=== PATIENT | male | born 1995 | race Caucasian/White ===

== ENCOUNTER 2019-12-06 13:26 | Emergency (ER) | payer OTHER ==
[~2019-12-06] VITALS: Ht 175.3 cm; Wt 61.2 kg
[2019-12-06 14:18] LABS: ABSOLUTE BASOPHILS 0.1 thou/uL (0.0-0.2); ABSOLUTE EOSINOPHILS 0.1 thou/uL (0.0-0.7); ABSOLUTE LYMPHOCYTES 0.9 thou/uL (0.8-5.3); ABSOLUTE MONOCYTES 1.3 thou/uL (0.0-1.2); ABSOLUTE NEUTROPHILS 12.5 thou/uL (1.6-8.1); BASOPHILS 0.4 %; EOSINOPHILS 0.9 %; HEMATOCRIT 43.7 % (42.0-52.0); LYMPHOCYTES 6.3 %; MCHC 34.4 g/dL (28.0-37.0); MCV 90.3 fL (80.0-100.0); MONOCYTES 8.6 %; MPV 7.4 fl. (7.2-11.1); NUCLEATED RBCS 0 /100WBC; PLATELET COUNT* 390 thou/uL (150-400); POLYS 83.8 %; RBC 4.84 mil/uL (4.50-6.00); WBC 14.9 thou/uL (4.0-11.0)
[2019-12-06 14:33] LABS: ALBUMIN 3.2 g/dL (3.4-5.0); CALCIUM 9.6 mg/dL (8.5-10.1); CREATININE 1.1 mg/dL (0.6-1.3); POTASSIUM 4.3 mmol/L (3.5-5.1); TOTAL BILIRUBIN 0.3 mg/dL (<0.1-1.0); TOTAL PROTEIN 8.3 g/dL (6.4-8.2)
[2019-12-06 18:43] VITALS: BP 114/71
== END 2019-12-06 18:44 | disposition short-term general hospital (02) ==
LOC: M.ERS 13:26
PROVIDERS: Physician Assistant
DX: K12.2 Cellulitis and abscess of mouth (principal); J32.0 Chronic maxillary sinusitis

== ENCOUNTER 2019-12-25 02:45 | Inpatient (IN) | payer OTHER ==
[~2019-12-25] VITALS: Ht 167.6 cm; Wt 68.0 kg
[2019-12-25] VITALS (8 sets, daily range): BP systolic 122–150; BP diastolic 81–109
--- NOTE | ~2019-12-25 | CON ---
[address] [address] CONSULTATION Name: SARAH KERN Room: [address] M.R.#: [id number] Admission: 12/25/19 Attend Phys: Kiera Fletcher Discharge: Date of : 89 Report #: [id number] THIS REPORT FOR: //name// cc: DESIRAE - No family physician/PCP DESIRAE - No family physician/PCP ~ THIS REPORT FOR: //name// CC: [facility] physician/PCP Kiera Mota DICTATED BY: Candace Slaughter [facility] DATE OF SERVICE: 12/27/2019 The patient does not have a PCP. Please note at the time of this dictation, the patient was seen and physically examined by myself. REASON FOR CONSULTATION: Tylenol overdose and elevated LFTs. HISTORY OF PRESENT ILLNESS: This is a 23-year-old male who presented to the Emergency Room on 12/25/2019 after overdosing on 30 to 40 Tylenol 500 mg tablets with suicidal ideation. He was very nauseated. He had some diffuse abdominal pain on admission. He states his life events were very stressful. He broke up with his girlfriend and mother of his 5-year-old child. 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 He has not been able to sleep at night and noticing he had been having a low-grade fever. He had decreased appetite. He denied any nausea or vomiting at that time. He did have a bowel movement the day prior to admission and he did state he had diarrhea. The patient is currently a one-on-one and Psych is following via telemedicine. ALLERGIES: No known drug allergies. MEDICATIONS FROM HOME: None. PAST MEDICAL HISTORY: Negative. PAST SURGICAL HISTORY: Negative. FAMILY HISTORY: Negative. SOCIAL HISTORY: Positive for marijuana. Negative alcohol. REVIEW OF SYSTEMS: Twelve-point review of systems is essentially negative except what [place] [address] CONSULTATION Name: ERLINSARAH RAMIREZ Room: [address] [place] [facility]#: [id number] Admission: 12/25/19 Attend Phys: Kiera Fletcher Discharge: Date of : 89 Report #: [id number] PHYSICAL EXAMINATION: VITAL SIGNS: Temperature 37.2, pulse 89, respirations 16, blood pressure 113/71. HEART: Regular rate and rhythm. LUNGS: Clear. ABDOMEN: Soft, positive bowel sounds in all 4 quadrants with no masses or tenderness noted. LABORATORY DATA: Hemoglobin 14.7, white count 3.5, platelets 152. PT 13.7, INR 1.4, GFR is 137, total bilirubin 0.5, alkaline phosphatase 78, ALT 3959, AST is 2393, both of which are coming down and urine drug screen positive for marijuana and his acetaminophen level was 89. IMPRESSION: 1. Tylenol overdose. 2. Elevated LFTs. 3. Suicidal ideation. PLAN: 1. Continue his acetylcholine drip, monitor his LFTs. 2. Further recommendations to be made once Dr. Cantrell sees the patient later today. Thank you for allowing us to participate in this patient's care. Please do not hesitate to call with any questions in regard to this consult. By: [id number] Cantrell DO /nt
[2019-12-25 03:12] LABS: ABSOLUTE BASOPHILS 0.1 thou/uL (0.0-0.2); ABSOLUTE LYMPHOCYTES 1.1 thou/uL (0.8-5.3); ABSOLUTE MONOCYTES 0.4 thou/uL (0.0-1.2); ABSOLUTE NEUTROPHILS 5.1 thou/uL (1.6-8.1); BASOPHILS 1.2 %; EOSINOPHILS 0.2 %; HEMATOCRIT 45.7 % (42.0-52.0); HEMOGLOBIN 15.5 gm/dL (14.0-18.0); LYMPHOCYTES 16.4 %; MCH 30.7 pg (26.0-34.0); MCV 90.3 fL (80.0-100.0); MONOCYTES 6.4 %; MPV 7.7 fl. (7.2-11.1); NUCLEATED RBCS 0 /100WBC; PLATELET COUNT* 310 thou/uL (150-400); POLYS 75.8 %; RBC 5.06 mil/uL (4.50-6.00); RDW-CV 13.4 % (10.5-14.5); WBC 6.8 thou/uL (4.0-11.0)
[2019-12-25 03:19] LABS: URINE BILIRUBIN NEGATIVE (Negative); URINE BLOOD NEGATIVE (Negative); URINE CLARITY CLEAR; URINE COLOR YELLOW; URINE GLUCOSE-RANDOM NEGATIVE (Negative); URINE KETONES NEGATIVE (Negative); URINE LEUKOCYTES-REFLEX NEGATIVE (Negative); URINE NITRITE-REFLEX NEGATIVE (Negative); URINE PROTEIN NEGATIVE (Negative); URINE SPECIFIC GRAVITY >= 1.030 (1.005-1.030); URINE UROBILINOGEN 0.2 E.U./dl (0.2-1.0)
[2019-12-25 03:24] LABS: CALCIUM 8.6 mg/dL (8.5-10.1); CREATININE 1.1 mg/dL (0.6-1.3); POTASSIUM 3.2 mmol/L (3.5-5.1)
[2019-12-25 03:25] LABS: AMP/METHAMP Negative (Negative); BARBITURATES Negative (Negative); BENZODIAZEPINES Negative (Negative); COCAINE Negative (Negative); METHADONE Negative (Negative); OPIATES Negative (Negative); PCP Negative (Negative); THC POSITIVE (Negative)
[2019-12-25 03:28] LABS: APTT 31.7 Seconds (25.0-31.3); INR 1.1; PROTIME 11.7 Seconds (9.20-11.50)
[2019-12-25 03:36] LABS: TOTAL BILIRUBIN 0.4 mg/dL (<0.1-1.0); TOTAL PROTEIN 7.6 g/dL (6.4-8.2)
[2019-12-25 03:37] LABS: ACETAMINOPHEN 89 ug/mL (10-30); SALICYLATE 4.8 mg/dL (2.8-20.0)
[2019-12-25 03:41] LABS: ALCOHOL < 10 mg/dL (<10)
--- NOTE | 2019-12-25 07:32 | NUR ---
PT'S MOTHER ARRIVED TO ED AND IS SITTING AT BEDSIDE. PT'S MOTHER ALSO SIGNED TRANSFER FORM AT THIS TIME.
[2019-12-25 10:44] LABS: CALCIUM 8.3 mg/dL (8.5-10.1); CREATININE 0.7 mg/dL (0.6-1.3)
[2019-12-25 10:47] LABS: POTASSIUM 2.9 mmol/L (3.5-5.1)
[2019-12-25 10:49] LABS: ALBUMIN 3.3 g/dL (3.4-5.0); TOTAL BILIRUBIN 0.6 mg/dL (<0.1-1.0); TOTAL PROTEIN 6.8 g/dL (6.4-8.2)
--- NOTE | 2019-12-25 14:43 | NUR ---
THIS AGENCY SALES REPRESENTATIVE ASSUMED CARE OF PT AT 0805 PT WAS DOWNGRADED TO ROOM 314 ALL BELONGINGS PACKED AND SENT WITH PATIENTS TRANSPORTED VIA WHEELCHAIR BY [facility] CONSULT COMPLETE TWO AFFIDAVIT COMPLETE AND IN CHART LOOKING FOR PLACEMENT IN INPATIENT PSYCH FACILITY
--- NOTE | 2019-12-25 18:51 | NUR ---
RECEIVED REPORT AND ASSUMED CARE OF PT @ 9676.PT IS A/O X4,VSS,SI PRECAUTIONS IN PLACE.SITTER IN PLACE.NO C/O PAIN.IVF INFUSING PER ORDERS.HOURLY ROUNDING COMPLETED FOR PT SAFETY.CALL LIGHT WITHIN REACH.WILL CONTINUE TO MONITOR FOR DURATION OF SHIFT.
[2019-12-25 21:25] LABS: INR 1.4; PROTIME 14.3 Seconds (9.20-11.50)
[2019-12-25 21:34] LABS: DIRECT BILIRUBIN 0.1 mg/dL (<0.1-0.3); TOTAL BILIRUBIN 0.4 mg/dL (<0.1-1.0); TOTAL PROTEIN 6.2 g/dL (6.4-8.2)
--- NOTE | 2019-12-26 00:26 | NUR ---
Kely (from [place] poison control) called to check in on pt. Sheasked if pt was still recieving acetylcystein. Pt was currently recieving acetylcystein at the time. No pain or N/v noted. Kely to call back when LFT labs are drawn to see if pt needs to continue on med. call center agent back. Kely notifed of LFT's. She wants pt to continue on maintainance dose 0f 100mg/kg for 16hrs. Dr singh notifed for orders. orders faxed to pharmacy. preparation supervisor currently working on getting medication. Will continue to monitor.
--- NOTE | 2019-12-26 04:18 | NUR ---
Recieved a call from Lili ([place] poison control) @6193 checking in on pt. Lili informed that pt is doing ok. Pt denies any complaints at this time. Acetylcystein currently infusing. Labs to be drawn prior to end of infusion.
--- NOTE | 2019-12-26 04:25 | NUR ---
pt's mom Amarilis called @ 1478 to check in on pt. Pt's mom asked how pt is doing, as well as how labs are trendings. Pt's mom informed that pt is doing ok. Pt denies any complaints at this time. Acetylcystein infusing.
--- NOTE | 2019-12-26 05:14 | NUR ---
PT ALERT AND ORIENTED. VERY PLEASANT. VSS ON RA. 1:1 0BSERVATION. AST AND ALT TRENDING UP. PER POISON CONTROL, CONTINUE ACEYTLCYSTEIN. FLUIDS CURRENTLY INFUSING ORDERED. POISION CONTROL CALLED THROUGH SHIFT TO CHECK IN ON PT. CALLS DOCUMENTED NOTES. JON WHITE CALLED TO CHECK IN ON PT THIS AM. CALL LIGHT WITHIN REACH. HOURLY ROUNDINGS MADE. WILL CONTINUE TO MONITOR.
[2019-12-26 05:17] LABS: ALBUMIN 3.2 g/dL (3.4-5.0); POTASSIUM 4.1 mmol/L (3.5-5.1); TOTAL BILIRUBIN 0.4 mg/dL (<0.1-1.0); TOTAL PROTEIN 6.4 g/dL (6.4-8.2)
[2019-12-26 07:57] VITALS: BP 102/57
[2019-12-26 18:05] LABS: INR 1.4; PROTIME 14.3 Seconds (9.20-11.50)
[2019-12-26 18:17] LABS: DIRECT BILIRUBIN 0.2 mg/dL (<0.1-0.3); TOTAL BILIRUBIN 0.5 mg/dL (<0.1-1.0); TOTAL PROTEIN 6.6 g/dL (6.4-8.2)
[2019-12-26 19:26] LABS: ABSOLUTE EOSINOPHILS 0.2 thou/uL (0.0-0.7); ABSOLUTE MONOCYTES 0.3 thou/uL (0.0-1.2); BASOPHILS 1.3 %; EOSINOPHILS 4.3 %; HEMATOCRIT 42.8 % (42.0-52.0); HEMOGLOBIN 14.7 gm/dL (14.0-18.0); LYMPHOCYTES 29.8 %; MCH 30.6 pg (26.0-34.0); MCHC 34.3 g/dL (28.0-37.0); MCV 89.2 fL (80.0-100.0); MONOCYTES 7.4 %; MPV 7.8 fl. (7.2-11.1); NUCLEATED RBCS 0 /100WBC; POLYS 57.2 %; RDW-CV 13.2 % (10.5-14.5); WBC 3.5 thou/uL (4.0-11.0)
[2019-12-26 19:28] LABS: PLATELET COUNT* 152 thou/uL (150-400)
[2019-12-26 19:30] VITALS: BP 113/71
[2019-12-26 19:38] LABS: INR 1.4; PROTIME 14.2 Seconds (9.20-11.50)
--- NOTE | 2019-12-26 20:03 | NUR ---
PATIENT AWAKE IN BED. PATIENT AMBULATED IN ROOM THROUGHOUT SHIFT. ALL SAFETY MEASURES MAINTAINED. SPOKE WITH MARILEE FROM POISON CONTROL AT 1804. AST AND ALT LEVELS HAD NOT COME BACK YET. MARILEE REPORTS SHE WILL CALL BACK IN A FEW HOURS. PATIENT'S MOTHER CHRISTOPHER CALLED TO INQUIRE ABOUT AST AND ALT LEVELS AT 1950 . PATIENT'S MOTHER DENIES FURTHER NEEDS OR QUESTIONS AT THIS TIME. PATIENT DENIES FURTHER NEEDS AT THIS TIME.
[2019-12-27 04:31] LABS: INR 1.4; PROTIME 13.7 Seconds (9.20-11.50)
[2019-12-27 04:44] LABS: ALBUMIN 2.9 g/dL (3.4-5.0); CREATININE 0.7 mg/dL (0.6-1.3); TOTAL BILIRUBIN 0.5 mg/dL (<0.1-1.0); TOTAL PROTEIN 6.1 g/dL (6.4-8.2)
[2019-12-27 05:10] LABS: POTASSIUM 3.9 mmol/L (3.5-5.1)
[2019-12-27 06:51] LABS: TOTAL BILIRUBIN 0.5 mg/dL (<0.1-1.0)
[2019-12-27 06:52] LABS: ALBUMIN 2.9 g/dL (3.4-5.0); TOTAL PROTEIN 6.1 g/dL (6.4-8.2)
[2019-12-27 06:54] LABS: DIRECT BILIRUBIN 0.2 mg/dL (<0.1-0.3)
--- NOTE | 2019-12-27 07:29 | NUR ---
PT ALERT AND ORIENTED. VSS ON RA. VERY PLEASANT. UP AD FRANCIS. 1:1 OBSERVATION. MARILEE FROM POISON CONTROL CALLED REGARDING UPDATES ON PT. UPDATES AND LAST LABS GIVEN. WILL CONTINUE TO MONITOR. SEE LABS THIS AM FOR LFT. CALL LIGHT WITHIN REACH. WILL CONTINUE TO MONITOR.
[2019-12-27 08:00] VITALS: BP 102/60
--- NOTE | 2019-12-27 11:30 | NUR ---
MET WITH PT TO DISCUSS HOME SITUATION/DC PLANNING. PT LIVES WITH HIS MOM RECENTLY. HE USED TO HAVE HIS OWN PLACE BUT LOST IT AFTER LOSING HIS JOB 2-3WKS AGO. ALSO STATED HE HAD A RELATIONSHIP WITH [employer] THAT ENDED AROUND THAT TIME AND THAT LOSING HIS JOB WAS PART OF THAT ALSO. PT STATED HE HAS BEEN DEPRESSED, HAS HAD FAMILY TO DISCUSS IT WITH BUT NOT SOUGHT ANY OUTSIDE HELP. HE ADMITTED TO THIS TYLENOL OD BEING A SUICIDE ATTEMPT AND THAT HE'S STILL DEPRESSED. TELEPSYCH DONE AND PT STATES INPT [place] WAS RECOMMENDED. AWAIT PSYCH REPORT AND MEDICAL STABILITY AND WILL FOLLOW
[2019-12-27 16:00] VITALS: BP 112/65
[2019-12-27 16:31] LABS: INR 1.2; PROTIME 12.5 Seconds (9.20-11.50)
[2019-12-27 16:40] LABS: ALBUMIN 3.2 g/dL (3.4-5.0); DIRECT BILIRUBIN 0.2 mg/dL (<0.1-0.3); TOTAL BILIRUBIN 0.4 mg/dL (<0.1-1.0); TOTAL PROTEIN 6.6 g/dL (6.4-8.2)
--- NOTE | 2019-12-27 17:00 | NUR ---
PT A&OX4 VSS. PT REMAINS ON 1:1 OBSERVATION FOR SAFETY. ACETYLCISTEINE RUNNING DIRECTED. IV TO RAC PATENT. NO REDNESS/SWELLING NOTED AT SITE. DRESSING C/D/I. PT ASSISTED TO SHOWER THIS AFTERNOON W/O DIFFICULTY. PT HAS NO C/O N/V OR PAIN. PT DECLINED NICOTINE PATCH. PT HAD VISITORS THIS AFTERNOON, NO ISSUES OR COMPLAINTS. LABS TO BE REPEATED THIS AFTERNOON, RESULTS PENDING AT THIS TIME. PT RESTS IN ROOM IN VIEW OF 1:1, ROOM NEAR NURSES STATION. SI PRECAUTIONS IN PLACE. PT RESTS IN ROOM WITH CALL LIGHT IN REACH. WILL CONTINUE TO MONITOR
[2019-12-27 19:20] VITALS: BP 96/49
[2019-12-28 02:59] LABS: INR 1.1; PROTIME 11.7 Seconds (9.20-11.50)
[2019-12-28 03:12] LABS: ALBUMIN 2.9 g/dL (3.4-5.0); DIRECT BILIRUBIN 0.2 mg/dL (<0.1-0.3); TOTAL BILIRUBIN 0.4 mg/dL (<0.1-1.0); TOTAL PROTEIN 6.2 g/dL (6.4-8.2)
[2019-12-28 05:41] LABS: HEMATOCRIT 41.3 % (42.0-52.0); HEMOGLOBIN 14.1 gm/dL (14.0-18.0); MCH 30.6 pg (26.0-34.0); MCHC 34.3 g/dL (28.0-37.0); MCV 89.4 fL (80.0-100.0); MPV 7.8 fl. (7.2-11.1); NUCLEATED RBCS 0 /100WBC; PLATELET COUNT* 154 thou/uL (150-400); RBC 4.62 mil/uL (4.50-6.00); RDW-CV 13.6 % (10.5-14.5); WBC 3.5 thou/uL (4.0-11.0)
[2019-12-28 05:49] LABS: INR 1.1; PROTIME 11.4 Seconds (9.20-11.50)
[2019-12-28 06:01] LABS: ALBUMIN 3.1 g/dL (3.4-5.0); CALCIUM 8.4 mg/dL (8.5-10.1); CREATININE 0.9 mg/dL (0.6-1.3); POTASSIUM 4.3 mmol/L (3.5-5.1); TOTAL BILIRUBIN 0.5 mg/dL (<0.1-1.0); TOTAL PROTEIN 6.4 g/dL (6.4-8.2)
--- NOTE | 2019-12-28 06:03 | NUR ---
PT ALERT AND ORIENTED. VERY PLEASANT. VSS ON RA. MEDS GIVEN PER EMAR. AST AND ALT ARE TRENDING LOW. PER JAVON FROM [place] POISON CONTR[facility], STOP ACETYLCYSTEINE AND REDRAW LAB IN LATER TODAY TO KEEP TRACK AND MAKE SURE THERE IS NO RELAPSE. CALL LIGHT WITHIN REACH. HOURLY ROUNDINGS MADE. WILL CONTINUE TO MONITOR.
[2019-12-28 07:08] LABS: ABSOLUTE EOSINOPHILS 0.7 thou/uL (0.0-0.7); ABSOLUTE MONOCYTES 0.2 thou/uL (0.0-1.2); ABSOLUTE NEUTROPHILS 0.6 thou/uL (1.6-8.1); PLATELET ESTIMATE ADEQUATE
[2019-12-28 08:03] VITALS: BP 108/58
--- NOTE | 2019-12-28 15:25 | NUR ---
AWAITING MEDICAL CLEARANCE FOR TRANSFER TO IN PSYCH. CM WILL CONTINUE TO FOLLOW
[2019-12-28 16:00] VITALS: BP 116/73
[2019-12-28 16:44] LABS: PROTIME 10.7 Seconds (9.20-11.50)
[2019-12-28 16:58] LABS: ALBUMIN 3.5 g/dL (3.4-5.0); DIRECT BILIRUBIN 0.2 mg/dL (<0.1-0.3); TOTAL BILIRUBIN 0.5 mg/dL (<0.1-1.0); TOTAL PROTEIN 6.9 g/dL (6.4-8.2)
--- NOTE | 2019-12-28 20:49 | NUR ---
I ASSUMED CARE OF THE PATIENT AT 0700. HE IS ALERT AND ORIENTED X4 AND IS UP AD FRANCIS. HE IS PLEASANT AND HAS A SITTER. BED IS IN THE LOW LOCKED POSITION AND CALL LIGHT IS IN REACH. PATIENT NEEDS ARE MET AND PAIN IS DENIED. HOURLY ROUNDING IS COMPLETED. LABS ARE TRENDING DOWN AND POISON CONTROL CALLED TO DO THEIR FINAL CHECK ON THE PATIENT, THEY ARE SIGNING OFF. FLUIDS HAVE BEEN D/C'D AND HE IS EATING AND DRINKING WELL. WILL CONTINUE TO MONITOR. PATIENT CAN NOT BE PLACED UNTIL HIS ALT IS LESS THAN 1000. CASE MANAGEMENT IS ALSO ON BOARD.
[2019-12-28 22:00] VITALS: BP 110/65
--- NOTE | 2019-12-29 04:57 | NUR ---
RESTING WELL THROUGHOUT HOURLY ROUNDS, PT SLEPT MOSTLY DURING THIS SHIFT WITH 1:1 SITTER AT BEDSIDE. DENIES NAUSEA OR SOA. WILL CONITNUE WITH CURRENT PLAN OF CARE AND WILL REPORT CHANGES.
[2019-12-29 05:05] LABS: ABSOLUTE EOSINOPHILS 0.4 thou/uL (0.0-0.7); ABSOLUTE LYMPHOCYTES 1.8 thou/uL (0.8-5.3); ABSOLUTE MONOCYTES 0.4 thou/uL (0.0-1.2); ABSOLUTE NEUTROPHILS 1.9 thou/uL (1.6-8.1); BASOPHILS 0.2 %; EOSINOPHILS 9.7 %; HEMATOCRIT 42.4 % (42.0-52.0); HEMOGLOBIN 14.5 gm/dL (14.0-18.0); LYMPHOCYTES 39.1 %; MCH 30.6 pg (26.0-34.0); MCHC 34.3 g/dL (28.0-37.0); MCV 89.1 fL (80.0-100.0); MONOCYTES 9.2 %; MPV 7.5 fl. (7.2-11.1); NUCLEATED RBCS 0 /100WBC; PLATELET COUNT* 178 thou/uL (150-400); POLYS 41.8 %; RBC 4.75 mil/uL (4.50-6.00); RDW-CV 13.2 % (10.5-14.5); WBC 4.5 thou/uL (4.0-11.0)
[2019-12-29 05:19] LABS: INR 1.1; PROTIME 10.9 Seconds (9.20-11.50)
[2019-12-29 05:29] LABS: ALBUMIN 3.2 g/dL (3.4-5.0); CALCIUM 8.9 mg/dL (8.5-10.1); CREATININE 0.9 mg/dL (0.6-1.3); TOTAL BILIRUBIN 0.7 mg/dL (<0.1-1.0); TOTAL PROTEIN 6.5 g/dL (6.4-8.2)
[2019-12-29 07:20] VITALS: BP 97/70
[2019-12-29 11:26] LABS: ABSOLUTE EOSINOPHILS 0.4 thou/uL (0.0-0.7); ABSOLUTE LYMPHOCYTES 1.3 thou/uL (0.8-5.3); ABSOLUTE MONOCYTES 0.4 thou/uL (0.0-1.2); ABSOLUTE NEUTROPHILS 2.2 thou/uL (1.6-8.1); BASOPHILS 0.9 %; EOSINOPHILS 8.1 %; HEMATOCRIT 43.5 % (42.0-52.0); LYMPHOCYTES 30.5 %; MCH 30.8 pg (26.0-34.0); MCHC 34.5 g/dL (28.0-37.0); MCV 89.3 fL (80.0-100.0); MONOCYTES 8.6 %; MPV 7.8 fl. (7.2-11.1); NUCLEATED RBCS 0 /100WBC; PLATELET COUNT* 192 thou/uL (150-400); POLYS 51.9 %; RBC 4.87 mil/uL (4.50-6.00); RDW-CV 13.1 % (10.5-14.5); WBC 4.3 thou/uL (4.0-11.0)
[2019-12-29 11:35] LABS: INR 1.1; PROTIME 10.8 Seconds (9.20-11.50)
--- NOTE | 2019-12-29 11:42 | NUR ---
ALT STILL ELEVATED. WILL AWAIT FOR LABS TO NORMALIZE FOR PT TO BE MEDICALLY CLEARED. WILL AWAIT MEDICAL CLEARANCE BEFORE SENDING REFERRALS TO INPT PSYCH
[2019-12-29 11:53] LABS: ALBUMIN 3.7 g/dL (3.4-5.0); CALCIUM 9.7 mg/dL (8.5-10.1); CREATININE 0.8 mg/dL (0.6-1.3); DIRECT BILIRUBIN 0.2 mg/dL (<0.1-0.3); POTASSIUM 4.1 mmol/L (3.5-5.1); TOTAL BILIRUBIN 0.7 mg/dL (<0.1-1.0); TOTAL PROTEIN 7.3 g/dL (6.4-8.2)
--- NOTE | 2019-12-29 13:30 | NUR ---
PT MEDICALLY CLEARED FOR INPT PSYCH PER DR COLEMAN. DISCUSSED WITH PT INPT PSYCH OPTIONS. [facility] HAS NO BEDS AVAILABLE, [facility] HAS NO BEDS AVAILABLE. WILL FAX REFERRAL TO [facility] AND [facility]. AFFIDAVIT ON CHART
--- NOTE | 2019-12-29 13:58 | NUR ---
[facility]. AWAITING CALL FROM [facility] TO SEE IF BEDS ARE AVAILABLE
--- NOTE | 2019-12-29 14:08 | NUR ---
[place] [facility] [place] WILL AWAIT TO HEAR FROM [facility] AND [facility] ABOUT REFERRALS SENT
--- NOTE | 2019-12-29 16:04 | NUR ---
PT ACCEPTED TO COUNT INCLUDES THE [facility].DISCUSSED WITH PT. NURSE TO CALL REPORT TO . PT INFORMED OF TRANSFER. [facility] PAPERWORK FAXED TO [facility]. NURSE NOTIFIED OF TRANSFER PAPERWORK
--- NOTE | 2019-12-29 17:23 | NUR ---
PT ACCEPTED AT [facility]. REPORT CALLED AND GIVEN TO WILLIAM FLOOD. VSS PRIOR TO DC. FAMILY AT BEDSIDE DURING DC. PT TRANSPORTED TO [facility] VIA EMS.
== END 2019-12-29 17:20 | DRG 917 ==
LOC: M.ERS 02:45 → M.3W 04:01 → M.TBA-ER 04:01 → M.ICU 07:53 → M.3W 14:37
PROVIDERS: Emergency Medicine Emergency Medical Services; Internal Medicine; Internal Medicine Gastroenterology; ADMIT Family Medicine
DX: T39.1X2A Poisoning by 4-Aminophenol derivatives, intentional self-harm, initial encounter (principal); S35.10XA Unspecified injury of inferior vena cava, initial encounter; R45.851 Suicidal ideations; B17.9 Acute viral hepatitis, unspecified; F17.210 Nicotine dependence, cigarettes, uncomplicated; F12.90 Cannabis use, unspecified, uncomplicated; Y93.89 Activity, other specified; Y99.8 Other external cause status; Y92.89 Other specified places as the place of occurrence of the external cause; Z79.899 Other long term (current) drug therapy

== ENCOUNTER 2020-01-08 12:18 | Emergency (ER) | payer OTHER ==
[~2020-01-08] VITALS: Ht 165.1 cm; Wt 68.0 kg
[2020-01-08] MEDS ORDERED: NAPROSYN500 MG PO (14:03)
[2020-01-08 14:39] VITALS: BP 102/69
== END 2020-01-08 14:40 | disposition home or self-care (01) ==
LOC: M.ERS 12:18
DX: M25.561 Pain in right knee (principal); M25.461 Effusion, right knee

== ENCOUNTER 2021-09-27 09:31 | Emergency (ER) | payer OTHER ==
[~2021-09-27] VITALS: Ht 167.6 cm; Wt 72.6 kg
[~2021-09-27 09:31] MED LIST: NAPROSYN500 MG PO
[2021-09-27 10:05] LABS: ABSOLUTE BASOPHILS 0.1 thou/uL (0.0-0.2); ABSOLUTE EOSINOPHILS 0.2 thou/uL (0.0-0.7); ABSOLUTE LYMPHOCYTES 1.4 thou/uL (0.8-5.3); ABSOLUTE MONOCYTES 0.6 thou/uL (0.0-1.2); ABSOLUTE NEUTROPHILS 10.1 thou/uL (1.6-8.1); BASOPHILS 0.6 %; EOSINOPHILS 1.9 %; HEMOGLOBIN 15.9 gm/dL (14.0-18.0); LYMPHOCYTES 11.6 %; MCH 30.3 pg (26.0-34.0); MCHC 33.7 g/dL (28.0-37.0); MCV 89.7 fL (80.0-100.0); MONOCYTES 4.7 %; MPV 7.1 fl. (7.2-11.1); NUCLEATED RBCS 0 /100WBC; PLATELET COUNT* 359 thou/uL (150-400); POLYS 81.2 %; RBC 5.24 mil/uL (4.50-6.00); RDW-CV 13.1 % (10.5-14.5); WBC 12.4 thou/uL (4.0-11.0)
[2021-09-27 10:25] LABS: CREATININE 1.2 mg/dL (0.6-1.3); POTASSIUM 3.7 mmol/L (3.5-5.1)
[2021-09-27 10:29] LABS: ALBUMIN 3.8 g/dL (3.4-5.0); TOTAL BILIRUBIN 0.6 mg/dL (<0.1-1.0); TOTAL PROTEIN 7.6 g/dL (6.4-8.2)
[2021-09-27] MEDS ORDERED: PROTONIX40 M2 PO (11:30)
[2021-09-27] MEDS ORDERED: CARAFATE 1 GM TA1 G1 PO (11:30)
[2021-09-27 11:50] VITALS: BP 121/80
== END 2021-09-27 11:50 | disposition home or self-care (01) ==
LOC: M.ERS 09:31
PROVIDERS: Emergency Medicine Emergency Medical Services
DX: R11.10 Vomiting, unspecified (principal)